=== PATIENT | female | born 1995 | race Caucasian/White ===

== ENCOUNTER 2016-08-07 14:32 | Emergency (ER) | payer BC ==
[2016-08-07 17:41] VITALS: BP 113/71
--- NOTE | 2016-08-07 17:58 | UC ---
Eye Complaint HPI - HPI Summary HPI Summary: pt presents with c/o bilateral eye redness and discharge with sudden onset X 1 day. - History of Current Complaint Chief Complaint: UCEye Stated Complaint: EYE COMPLAINT Time Seen by Provider: 08/07/16 17:55 Hx Obtained From: Patient Hx Last Menstrual Period: 07/13/16 ?: No Onset/Duration: Sudden Onset, Lasting Days - X 1 day Timing: Constant Severity Initially: Mild Severity Currently: Moderate Location of Injury: Conjunctiva Associated Signs And Symptoms: Positive: Drainage (Purulent) - Allergies/Home Medications Allergies/Adverse Reactions: Allergies Allergy/AdvReac Type Severity Reaction Status Date / Time Sulfa Antibiotics Allergy Intermediate Rash Verified 08/07/16 17:35 PMH/Surg Hx/FS Hx/Imm Hx Previously Healthy: Yes - Surgical History Surgical History: None - Family History Known Family History: Positive: Other - positive [facility] for URI - Social History Occupation: Student - at [employer] Alcohol Use: None Substance Use Type: None Smoking Status (MU): Never Smoked Tobacco - Immunization History Most Recent Influenza Vaccination: FALL 2013 Review of Systems Constitutional: Negative Skin: Negative Eyes: Drainage, Eye Redness ENT: Negative Respiratory: Negative Cardiovascular: Negative Gastrointestinal: Negative Genitourinary: Negative Motor: Negative Neurovascular: Negative Musculoskeletal: Negative Neurological: Negative Psychological: Negative All Other Systems Reviewed And Are Negative: Yes Physical Exam Triage Information Reviewed: Yes Appearance: Well-Appearing Vital Signs: Initial Vital Signs Temp 99.3 F 08/07/16 17:35 Pulse 68 08/07/16 17:35 Resp 16 08/07/16 17:35 BP 113/71 08/07/16 17:35 Pulse Ox 100 08/07/16 17:35 Vital Signs Reviewed: Yes Eye Exam: Other Eyes: Positive: Conjunctiva Inflamed, Discharge - purulent bilateral ENT Exam: Normal Neck exam: Normal Respiratory Exam: Normal Musculoskeletal Exam: Normal Neurological Exam: Normal Psychological Exam: Normal Skin Exam: Normal Eye Complaint Course/Dx - Differential Dx/Diagnosis Differential Diagnosis/HQI/PQRI: Conjunctivitis Provider Diagnoses: conjunctivitis Discharge - Discharge Plan Condition: Stable Disposition: HOME Prescriptions: Polymyx/Trimethoprim OPTH* [Polytrim OPHTH*] 2 drop BOTH EYES Q8H #1 btl Patient Education Materials: Conjunctivitis (ED) Referrals: [facility] [place] [facility] [Outside] Non Staff,Doctor [Primary Care Provider] - Additional Instructions: Please follow up with your PCP or return to clinic as needed.
== END 2016-08-07 18:11 | disposition home or self-care (01) ==
LOC: UCCORT 14:32
DX: H10.33 Unspecified acute conjunctivitis, bilateral (principal); Z88.2 Allergy status to sulfonamides
CPT/HCPCS: 99212; G0463